=== PATIENT | female | born 1995 | race Caucasian/White ===

== ENCOUNTER 2016-05-07 11:53 | Inpatient (IN) | payer MEDICAID ==
[~2016-05-07] VITALS: Ht 157.5 cm; Wt 52.3 kg
[~2016-05-07 11:53] MED LIST: CIPR500T4 PO; IBUP-1542 PO; OXYTOCIN 30 UNITS/LR 500 ML BAG IV ONE
[2016-05-07] MEDS ORDERED: LACTATED RINGER'S 1,000 ML IV SCH (11:56)
[2016-05-07] MEDS ORDERED: MAGNESIUM SULFATE 4 GM/100 ML 100 ML IV ONE (12:00)
[2016-05-07] MEDS ORDERED: LACTATED RINGER'S 1,000 ML IV PRN (12:00)
[2016-05-07] MEDS ORDERED: METHYLERGONOVINE 0.2 MG INJ IM PRN ×2 (12:00→16:30)
[2016-05-07] MEDS ORDERED: OXYTOCIN 30 UNITS/LR 500 ML IV PRN ×2 (12:00→16:30)
[2016-05-07] MEDS ORDERED: AMPICILLIN 2 GM/NS (PMX) 100 ML IV ONE (12:00)
[2016-05-07] MEDS ORDERED: OXYTOCIN 30 UNITS/LR 500 ML IV SCH ×2 (12:00)
[2016-05-07] MEDS ORDERED: MAGNESIUM SULFATE 20 GM/500 ML 500 ML IV SCH (12:00)
[2016-05-07] MEDS ORDERED: IBUPROFEN 600 MG TAB PO PRN (12:00)
[2016-05-07] MEDS ORDERED: MISOPROSTOL 200 MCG TAB PR PRN ×2 (12:00→16:30)
[2016-05-07] MEDS ORDERED: LIDOCAINE 1% (MPF) 30 ML INJ INJ PRN (12:00)
[2016-05-07] MEDS ORDERED: BUTORPHANOL 2 MG INJ IV PRN (12:00)
[2016-05-07] MEDS ORDERED: CARBOPROST 250 MCG INJ IM PRN ×2 (12:00→16:30)
[2016-05-07] MEDS ORDERED: BETAMET NA PHOS/AC(6 MG/ML) 5ML INJ IM SCH (12:00)
[2016-05-07] MEDS ORDERED: AMPICILLIN 2 GM/NS (PMX) 100 ML ONE (12:02)
[2016-05-07 12:15] LABS: HEMATOCRIT 35.5 % (37.0-47.0); HEMOGLOBIN 12.2 g/dl (12.0-16.0); MEAN CORPUSCULAR HEMOGLOBIN 31.1 pg (29.0-33.0); MEAN CORPUSCULAR HGB CONC 34.2 g/dl (32.0-37.0); MEAN CORPUSCULAR VOLUME 90.8 fl (82.0-101.0); MEAN PLATELET VOLUME 7.9 fl (7.4-10.4); PLATELET COUNT 246 10^3/UL (140-440); RED BLOOD COUNT 3.91 10^6/ul (4.20-5.40); RED CELL DISTRIBUTION WIDTH 12.3 % (11.5-14.5); UNCORRECTED WBC 20.5 10^3/ul (4.8-10.8); WHITE BLOOD COUNT 20.5 10^3/ul (4.8-10.8)
[2016-05-07] MEDS ORDERED: ONDANSETRON 4 MG INJ ONE (12:15)
[2016-05-07] MEDS ORDERED: morphine SULFATE/PF (10 MG/10 ML) INJ ONE (12:15)
[2016-05-07] MEDS ORDERED: PHENYLephrine (100 MCG/ML) 5ML SYG ONE (12:15)
[2016-05-07 12:16] LABS: CONDITION 1; LH ANALYZER COMMENTS 1
[2016-05-07] MEDS ORDERED: OXYTOCIN 10 UNIT INJ ONE (12:16)
--- NOTE | 2016-05-07 12:27 | TRIAGE ---
OB Triage Datetime Report Generated by CPN: 05/07/2016 12:26 Datetime: 05/07/2016 11:56 EGA: 31.5 Datetime: 05/07/2016 11:34 Stage of : OB Triage Time of Arrival: 05/07/2016 11:34 Arrived By: Ambulance Arrived From: Home Chief Complaint: PT CAME IN VIA AMBULANCE C/O CONTRACTIONS AND BLEEDING SINCE YESTERDAY AND STATES THAT SHE THOUGH THAT HER UC AND BLEEDING WERE GOING TO GO AWAY AND THAT IS WHY SHE DIDNT CAME TO [facility]. Movement: Present Contractions: Regular Time Contractions Began: 05/06/2016 08:00 Contractions: 5 MIN Patient Complaints: Contractions Time Provider Notified: 05/07/2016 11:40 Provider Notified: JEFF Initial Plan: MONITOR AND VE
[2016-05-07] MEDS ORDERED: CEFAZOLIN 2 GM/50 ML (PMX) 50 ML IV SCH (12:30)
[2016-05-07 12:53] LABS: MONOCYTE # 1.8 10^3/ul (0.3-0.9); NEUTROPHIL # 16.6 10^3/ul (1.6-7.5)
[2016-05-07 13:18] VITALS: Ht 157.5 cm; Wt 52.3 kg
[2016-05-07 13:29] LABS: INR 0.97; PROTIME 12.9 Sec (12.2-14.2)
[2016-05-07 13:30] LABS: PARTIAL THROMBOPLASTIN TIME 25.1 Sec (25.0-35.0)
[2016-05-07] MEDS ORDERED: DIPHENHYDRAMINE 50 MG INJ IV PRN (13:30)
[2016-05-07] MEDS ORDERED: morphine 2 MG INJ IV PRN (13:30)
[2016-05-07] MEDS ORDERED: NALOXONE (0.4 MG/ML) INJ IV PRN (13:30)
[2016-05-07] MEDS ORDERED: ONDANSETRON 4 MG INJ IV PRN (13:30)
[2016-05-07] MEDS ORDERED: CEFAZOLIN 2 GM/50 ML (PMX) 50 ML IVPB SCH (15:00)
[2016-05-07 15:16] LABS: ADD UMIC YES; URINE BILIRUBIN (Dip) NEGATIVE (NEGATIVE); URINE BLOOD (Dip) TRACE (NEGATIVE); URINE GLUCOSE (Dip) NEGATIVE (NEGATIVE); URINE KETONES (Dip) 40 (NEGATIVE); URINE LEUKOCYTE ESTERASE (Dip) NEGATIVE (NEGATIVE); URINE NITRITE (Dip) NEGATIVE (NEGATIVE); URINE TOTAL PROTEIN (Dip) NEGATIVE (NEGATIVE); URINE UROBILINOGEN (Dip) 0.2 E.U./dL (0.1-1.0)
[2016-05-07 15:41] LABS: URINE COLOR YELLOW (YELLOW)
[2016-05-07 15:43] LABS: BACTERIA,URINE FEW; SQUAMOUS EPITHELIAL CELL,UR MODERATE; URINE RBCS 0-2 /HPF (0)
[2016-05-07 15:45] VITALS: BP 114/67; RESP 18
[2016-05-07] MEDS ORDERED: AMPICILLIN 1 GM/NS (PMX) 50 ML IV SCH (16:00)
--- NOTE | 2016-05-07 16:20 | HP ---
DATE OF ADMISSION: 05/07/2016 The patient is a 21-year-old G3, P1 who is at 31-1/2 weeks complaining of vaginal bleeding and uteri ne contractions, leakage of fluid. PAST MEDICAL HISTORY: None. PAST SURGICAL HISTORY: None. MEDICATIONS: vitamins. PHYSICAL EXAMINATION: Vital signs are stable. Exam within normal exam limits. An ST is reactive. Ultrasound done, shows the in breech presentation. Exam shows the patient is completely dilated, complete/complete, with a bulging bag, and in b reech presentation. ASSESSMENT: Intrauterine at 31-1/2 weeks, in labor, breech presentation. Discussed the n eed for primary section. The patient was complete in breech presentation and the possibili ty of poor progress with discussed with patient. Risk of section discussed. Risk of infection, bleeding, damage to organs, possible blood transfusion all discussed with patient. Edwina ent understands the risks and consents to procedure. took the patient to OR for primary emma nathalia section. Dictated By: SAMANTA AGUILAR MD /KEVIN Conf#: [id number] DID#: [id number]
[2016-05-07] MEDS ORDERED: NA PHOSPHATE/BIPHOS 133 ML ENEMA PR PRN (16:30)
[2016-05-07] MEDS ORDERED: LANOLIN 7 GM TUBE TOP PRN (16:30)
[2016-05-07] MEDS: OXYTOCIN 30 UNITS/LR 500 ML IV SCH ×2 (16:42→21:39)
[2016-05-07 16:51] LABS: CANNABINOIDS Negative (NEGATIVE)
[2016-05-07 17:03] LABS: BARBITURATES Negative (NEGATIVE); BENZODIAZEPINES Negative (NEGATIVE); COCAINE Negative (NEGATIVE); OPIATES Negative (NEGATIVE)
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
[2016-05-07] MEDS: KETOROLAC 30 MG INJ IV PRN (18:04)
[2016-05-07 20:00] VITALS: BP 100/58; PULSE 85; RESP 18
[2016-05-07] MEDS: LACTATED RINGER'S 1,000 ML IV SCH (20:10)
[2016-05-07] MEDS: CEFAZOLIN 2 GM/50 ML (PMX) 50 ML IVPB SCH (20:11)
[2016-05-07] MEDS: SENNA/DOCUSATE NA (8.6MG/50MG) TAB PO SCH (21:00)
[2016-05-08] MEDS: LACTATED RINGER'S 1,000 ML IV SCH ×3 (00:05→11:36)
[2016-05-08 00:30] VITALS: BP 115/62; PULSE 77; RESP 18
[2016-05-08 04:00] VITALS: BP 92/53; PULSE 79
[2016-05-08] MEDS: CEFAZOLIN 2 GM/50 ML (PMX) 50 ML IVPB SCH ×2 (04:28→11:35)
[2016-05-08 08:02] VITALS: BP 92/52; PULSE 70; RESP 18
[2016-05-08] MEDS: KETOROLAC 30 MG INJ IV PRN (08:02)
[2016-05-08] MEDS: SENNA/DOCUSATE NA (8.6MG/50MG) TAB PO SCH ×2 (08:02→21:46)
[2016-05-08 08:18] LABS: EOSINOPHILS % 0.1 % (0.0-7.0); HEMOGLOBIN 10.6 g/dl (12.0-16.0); LYMPHOCYTES # 1.1 10^3/ul (0.8-2.9); LYMPHOCYTES % 5.7 % (15.0-51.0); MEAN CORPUSCULAR HEMOGLOBIN 31.7 pg (29.0-33.0); MEAN CORPUSCULAR HGB CONC 35.2 g/dl (32.0-37.0); MEAN CORPUSCULAR VOLUME 90.1 fl (82.0-101.0); MEAN PLATELET VOLUME 8.1 fl (7.4-10.4); MONOCYTE # 1.1 10^3/ul (0.3-0.9); MONOCYTES % 5.5 % (0.0-11.0); NEUTROPHIL # 17.2 10^3/ul (1.6-7.5); NEUTROPHILS % 88.7 % (39.0-77.0); PLATELET COUNT 220 10^3/UL (140-440); RED BLOOD COUNT 3.34 10^6/ul (4.20-5.40); RED CELL DISTRIBUTION WIDTH 12.4 % (11.5-14.5); UNCORRECTED WBC 19.4 10^3/ul (4.8-10.8); WHITE BLOOD COUNT 19.4 10^3/ul (4.8-10.8)
[2016-05-08 08:34] LABS: CONDITION 1
[2016-05-08] MEDS ORDERED: INFLUENZA VIRUS VACCINE 0.5 ML (DISPENSING) IM* ONE (09:00)
[2016-05-08 12:00] VITALS: BP 90/53; PULSE 82; RESP 18
[2016-05-08] MEDS ORDERED: ACETAMINOPHEN/CODEINE #3 TAB PO PRN (12:15)
--- NOTE | 2016-05-08 13:25 | PN ---
Date/Time of Note Date/Time of Note DATE: 05/08/16 TIME: 13:24 Assessment/Plan VTE Prophylaxis VTE Prophylaxis Intervention: ambulation Lines/Catheters IV Catheter Type (from Nrs): Peripheral IV Assessment/Plan Assessment/Plan POD1 pt doing well hh stable exam wnl wbc elevated 20-possible UTI on ancef. continue care Subjective 24 Hr Interval Summary ENT: no complaints Respiratory: no complaints Cardiovascular: no complaints Gastrointestinal: no complaints Exam/Review of Systems Vital Signs Vitals Vital Signs Date Time Temp Pulse Resp B/P Pulse Ox O2 Delivery O2 Flow Rate FiO2 05/08/16 12:00 97.8 82 18 90/53 Room Air 05/08/16 00:30 95 Intake and Output 05/07/16 05/07/16 05/08/16 14:59 22:59 06:59 Intake Total 420 ml 50 ml Output Total 450 ml 1600 ml Balance -30 ml -1550 ml Results Result Diagram: 05/08/16 0745 Results 24 hrs Laboratory Tests Test 05/07/16 14:20 05/08/16 07:45 Urine Amorphous Urates MANY Urine Amphetamines Screen Negative Urine Bacteria FEW Urine Barbiturates Negative Urine Benzodiazepines Screen Negative Urine Bilirubin NEGATIVE Urine Cannabinoids Negative Urine Clarity CLOUDY Urine Cocaine Screen Negative Urine Color YELLOW Urine Glucose NEGATIVE Urine Hemoglobin TRACE Urine Ketones 40 Urine Leukocyte Esterase NEGATIVE Urine Microscopic RBC 0-2 Urine Microscopic WBC 0-2 Urine Nitrite NEGATIVE Urine Opiates Screen Negative Urine Specific [place] 1.020 Urine Squamous Epithelial Cells MODERATE Urine Total Protein NEGATIVE Urine Urobilinogen 0.2 E.U./dL Urine pH 8.0 Basophils # 0.0 Basophils % 0.0 Eosinophils # 0.0 Eosinophils % 0.1 Hematocrit 30.0 L Hemoglobin 10.6 L Lymphocytes # 1.1 Lymphocytes % 5.7 L Mean Corpuscular Hemoglobin 31.7 Mean Corpuscular Hemoglobin Concent 35.2 Mean Corpuscular Volume 90.1 Mean Platelet Volume 8.1 Monocytes # 1.1 H Monocytes % 5.5 Neutrophils # 17.2 H Neutrophils % 88.7 H Nucleated Red Blood Cells # 0.0 Nucleated Red Blood Cells % 0.0 Platelet Count 220 Red Blood Count 3.34 L Red Cell Distribution Width 12.4 White Blood Count 19.4 H Medications Medications Current Medications Naloxone HCl (Narcan) 0.1 mg Q2M PRN IV FOR RESP RATE 8 OR LESS; Start at 13:30; Stop 05/08/16 at 13:29 Ketorolac Tromethamine (Toradol) 30 mg Q6H PRN IV PAIN Last administered on 08:02; Admin Dose 30 MG; Start 05/07/16 at 13:30; Stop 05/08/16 at 13:29 Morphine Sulfate (morphine) 2 mg Q3H PRN IV PAIN LEVEL 1-5; Start 05/07/16 at 13:30; Stop 05/08/16 at 13:29 Diphenhydramine HCl (Benadryl) 25 mg Q6H PRN IV ITCHING; Start 05/07/16 at 13: 30; Stop 05/08/16 at 13:29 Ondansetron HCl 4 mg 4 mg Q6H PRN IV NAUSEA AND/OR VOMITING; Start 05/07/16 at 13:30; Stop 05/08/16 at 13:29 Lactated Ringer's (Lr) 1,000 ml @ 125 mls/hr Q8H IV Last administered on 11:36; Admin Dose 125 MLS/HR; Start 05/07/16 at 16:05 Acetaminophen/ Codeine Phosphate (Tylenol No.3) 1 tab Q4H PRN PO PAIN LEVEL 4-6 ; Start 05/08/16 at 12:15 Acetaminophen/ Codeine Phosphate (Tylenol No.3) 2 tab Q4H PRN PO PAIN LEVEL 7- 10; Start 05/08/16 at 12:15 Ibuprofen (Motrin) 800 mg Q8 PO ; Start 05/08/16 at 14:00 Simethicone (Mylicon) 160 mg Q8H PRN PO DISTENSION/GAS/BLOATING; Start at 16:30 Senna/Docusate Sodium (Senokot-S) 1 tab BID PO Last administered on 05/08/16 08:02; Admin Dose 1 TAB; Start 05/07/16 at 21:00 Sodium Biphosphate/ Sodium Phosphate 133 ml 133 ml DAILY PRN OK CONSTIPATION; Start 05/07/16 at 16:30 Oxytocin/Lactated Ringer's 500 ml @ 0 mls/hr ONCE PRN IV For Hemorrhage Management; Start 05/07/16 at 16:30 Methylergonovine Maleate (Methergine) 0.2 mg ONCE PRN IM VAGINAL BLEEDING; Start 05/07/16 at 16:30 Carboprost Tromethamine (Hemabate) 250 mcg ONCE PRN IM VAGINAL BLEEDING; Start 05/07/16 at 16:30 Misoprostol (Cytotec) 1,000 mcg ONCE PRN OK VAGINAL BLEEDING; Start 05/07/16 at 16:30 SAMANTA AGUILAR MD May 08, 2016 13:25
[2016-05-08] MEDS: IBUPROFEN 800 MG TAB PO SCH ×2 (14:00→23:33)
[2016-05-08 15:30] VITALS: BP 93/55; PULSE 82; RESP 20
[2016-05-08 19:40] VITALS: BP 111/76; PULSE 100; RESP 18
[2016-05-08] MEDS: ACETAMINOPHEN/CODEINE #3 TAB PO PRN (19:41)
[2016-05-09] MEDS: LACTATED RINGER'S 1,000 ML IV SCH (00:05)
[2016-05-09 04:30] VITALS: BP 96/55; PULSE 76; RESP 18
[2016-05-09] MEDS: IBUPROFEN 800 MG TAB PO SCH ×3 (05:50→22:06)
[2016-05-09 08:15] VITALS: BP 98/54; PULSE 78; RESP 18
[2016-05-09] MEDS: SENNA/DOCUSATE NA (8.6MG/50MG) TAB PO SCH ×2 (09:14→20:34)
[2016-05-09 15:56] VITALS: BP 98/56; PULSE 79; RESP 18
[2016-05-09 19:50] VITALS: BP 110/65; PULSE 92; RESP 18
[2016-05-10 04:00] VITALS: BP 111/65; PULSE 75; RESP 18
[2016-05-10] MEDS: IBUPROFEN 800 MG TAB PO SCH ×2 (06:16→14:00)
[2016-05-10 08:01] VITALS: BP 100/63; PULSE 86; RESP 20
[2016-05-10] MEDS: ACETAMINOPHEN/CODEINE #3 TAB PO PRN (09:35)
[2016-05-10] MEDS: SENNA/DOCUSATE NA (8.6MG/50MG) TAB PO SCH (09:35)
[2016-05-10] MEDS ORDERED: INFLUENZA VIRUS VACCINE 0.5 ML (DISPENSING) IM* ONE (13:00)
[2016-05-10 15:30] VITALS: BP 96/50; PULSE 69
--- NOTE | 2016-05-10 16:08 | PN ---
Date/Time of Note Date/Time of Note DATE: 05/10/16 TIME: 15:52 OB Subjective Subjective Subjective Denies any complaint. pain well controlled with PO pain medications. Denies any fever or chills. Pumping her breast. Ambulating, tolerated regular diet. Baby is in NICU due to prematurity. Leukia is in the amount of menses. OB Objective Objective Objective GA: A&O, NAD. Lungs: CTA Bilaterally CV: RRR Extremities: No calf tenderness, no click, no edema Abdomen: Soft, appropriate tenderness over the incision. Incision: Clean, dry and intact Hematology - 72 Hrs Test 05/08/16 07:45 Basophils # 0.010^3/ul (0.0-0.1) Basophils % 0.0% (0.0-2.0) Eosinophils # 0.010^3/ul (0.0-0.5) Eosinophils % 0.1% (0.0-7.0) Hematocrit 30.0% (37.0-47.0) L Hemoglobin 10.6g/dl (12.0-16.0) L Lymphocytes # 1.110^3/ul (0.8-2.9) Lymphocytes % 5.7% (15.0-51.0) L Mean Corpuscular Hemoglobin 31.7pg (29.0-33.0) Mean Corpuscular Hemoglobin Concent 35.2g/dl (32.0-37.0) Mean Corpuscular Volume 90.1fl (82.0-101.0) Mean Platelet Volume 8.1fl (7.4-10.4) Monocytes # 1.110^3/ul (0.3-0.9) H Monocytes % 5.5% (0.0-11.0) Neutrophils # 17.210^3/ul (1.6-7.5) H Neutrophils % 88.7% (39.0-77.0) H Nucleated Red Blood Cells # 0.010^3/ul (0.0-0.0) Nucleated Red Blood Cells % 0.0/100WBC (0.0-0.0) Platelet Count 46603^3/UL (140-440) Red Blood Count 3.3410^6/ul (4.20-5.40) L Red Cell Distribution Width 12.4% (11.5-14.5) White Blood Count 19.410^3/ul (4.8-10.8) H OB Assessment/Plan Other Assessment: POD #3 S/p section for PTD Doing well Elevated WBC. Resolving, likely reactive and related to recent steriods was given for FLM. DC home Follow up at 2 and 6 weeks after DC home with OB clinic LYNDON DOSHI MD May 10, 2016 16:02
--- NOTE | 2016-05-10 16:09 | DS ---
Date/Time of Note Date/Time of Note DATE: 05/10/16 TIME: 16:08 Discharge Summary Admission/Discharge Info Admit Date/Time May 07, 2016 at 11:53 Discharge Date/Time 05/08/2016 Final Diagnosis labor, PTD Breech presentation Patient Condition: Good Consults none Procedures Primary Low transverse section Hx of Present Illness 21 years old with pegnancy at 31 + weeks who was noted to be in active labor and Breech presentation. She received Magnesium and received Bethamethazone, how ever patient broke through tocolysis and underwent Primary section due to active labor and Breech presentation. Her intra op and post op course was complicated only by leukocytosis that likely was reactive. She delivered a fetus. Baby was admitted to NICU due prematurity. Her post op course was otherwise non complicated. she was afebrile. Ambulated, tolerated regular diet. passed flatus, on POD # 3, she was noted to be stable enough to be discharged home. Advised to have a follow up in 2 and 6 weeks post op with her OB clinic. Hospital Course Non complicated Elevated WBC due to steriods Home Meds Active Scripts Ibuprofen* (Motrin*) 600 Mg Tab, 600 MG PO Q6, #20 TAB Prov:KAISER HOPE MD 01/23/15 Discontinued Scripts Ciprofloxacin Hcl* (Ciprofloxacin Hcl*) 500 Mg Tablet, 500 MG PO BID for 10 Days , TAB Prov:KAISER HOPE MD 01/23/15 Follow-up Plan in 2 and 6 weeks post op with OB clinic. LYNDON DOSHI MD May 10, 2016 16:09
== END 2016-05-10 16:00 | disposition home or self-care (01) | DRG 765 ==
LOC: L-D 11:53 → MERGE 11:53 → L-D 12:24 → PP1 15:21
PROC: 10D00Z1 Extraction of Products of Conception, Low, Open Approach (ICD-10-PCS; principal; 2016-05-07 12:30)
DX: O60.14X0 Preterm labor third trimester with preterm delivery third trimester, not applicable or unspecified (principal); O32.1XX0 Maternal care for breech presentation, not applicable or unspecified; O99.12 Other diseases of the blood and blood-forming organs and certain disorders involving the immune mechanism complicating childbirth; D72.829 Elevated white blood cell count, unspecified; Z3A.31 31 weeks gestation of pregnancy; Z37.0 Single live birth
CPT/HCPCS: 80307; 81001; 81003; 85025; 85610; 85730; 86592; 86900; 86901; 87340; 88307; 90686; 99464; G0463; J0290; J0690; J0702; J1885; J2270; J2274; J2370; J2405; J2590; J7120

== ENCOUNTER 2016-10-25 16:27 | Emergency (ER) | payer MEDICAID ==
[~2016-10-25] VITALS: Ht 160 cm; Wt 47.0 kg
[~2016-10-25 16:27] MED LIST changes: -CIPR500T4 PO; -OXYTOCIN 30 UNITS/LR 500 ML BAG IV ONE
[2016-10-25 16:30] VITALS: Ht 160 cm; Wt 47.0 kg
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
[2016-10-25] MEDS ORDERED: HYDROCODONE/APAP (5/325) TAB PO ONE (17:30)
[2016-10-25 17:44] LABS: URINE BLOOD (Dip) POC 2+ (NEGATIVE)
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
[2016-10-25] MEDS ORDERED: HYDR-906 PO (18:23)
[2016-10-25] MEDS ORDERED: AMOX1TAB10 PO (18:24)
== END 2016-10-25 20:10 | disposition home or self-care (01) ==
LOC: FTE 16:27
DX: S09.93XA Unspecified injury of face, initial encounter (principal); Y04.2XXA Assault by strike against or bumped into by another person, initial encounter
CPT/HCPCS: 70486; 81003; Z7610